=== PATIENT | male | born 1970 ===

== ENCOUNTER 2018-04-01 10:06 | Inpatient (IN) | payer OTHER ==
[~2018-04-01] VITALS: Ht 177.8 cm; Wt 5.0 kg
== END 2018-04-06 16:47 | disposition home or self-care, planned readmission (81) | DRG 349 ==
LOC: ER 10:06 → MEDI 21:18 → MEDJ 21:18 → MEDI 04-06 16:47
PROVIDERS: Surgery
PROC: BW21ZZZ Computerized Tomography (CT Scan) of Abdomen and Pelvis (ICD-10-PCS; 2018-04-01)
PROC: 3E0T3BZ Introduction of Anesthetic Agent into Peripheral Nerves and Plexi, Percutaneous Approach (ICD-10-PCS; 2018-04-05)
PROC: 06BY0ZC Excision of Hemorrhoidal Plexus, Open Approach (ICD-10-PCS; principal; 2018-04-05 13:15)
DX: K64.5 Perianal venous thrombosis (principal); K64.8 Other hemorrhoids; K62.89 Other specified diseases of anus and rectum